=== PATIENT | female | born 1990 | race Caucasian/White ===

== ENCOUNTER 2021-09-08 06:30 | Inpatient (IN) ==
[2021-09-08] MEDS ORDERED: PITOCIN ONE (06:41)
[2021-09-08] MEDS ORDERED: BETADINE SOLN ONE (06:41)
[2021-09-08] MEDS ORDERED: D5 1/2 NS 1,000 ML 1,000 ML IV ONE (06:41)
[2021-09-08] MEDS ORDERED: AMPICILLIN VIAL 2 GRAM ONE (06:42)
[2021-09-08] MEDS ORDERED: D5 1/2 NS 1,000 mL + PITOCIN 20 UNITS/L IV 20 UNITS/1,000 ML BAG IV ONE (06:42)
[2021-09-08] MEDS ORDERED: D5 LR + PITOCIN 10 UNITS/L 10 UNITS/1,000 ML BAG IV ONE (06:42)
[2021-09-08] MEDS ORDERED: NS 100 ML IV 100 ML ONE ×2 (06:43→10:58)
--- NOTE | 2021-09-08 07:25 | DR.OB ---
OB Quick Note - Assessment/Plan Assessment/Plan: L&D 09/08/21 at 7:15am S-No complaint. O-Afebrile,VSS [id number] with good LTV, +accel, no decel. CTX=mild uterine irritability CVX=2cm/50%/-1/VTX AROM with clear fluid. IUPC and FSE placed. A-IUP at 38 1/7 weeks for induction CHTN +GBS anxiety P-Begin pitocin induction IV ABX in labor for +GBS F/U preeclamptic labs Anticipate
[2021-09-08] MEDS ORDERED: PITOCIN IVP ONE (07:32)
[2021-09-08] MEDS ORDERED: D5 1/2 NS 1,000 ML 1,000 ML IV SCH (07:32)
[2021-09-08] MEDS ORDERED: AMPICILLIN VIAL 2 GRAM 2 G in NS 100 ML IV + SPIKE MINIBAG* 100 ML IV SCH (07:32)
[2021-09-08] MEDS ORDERED: PHENERGAN INJ 25 MG IM PRN ×2 (07:32→14:19)
[2021-09-08] MEDS ORDERED: REGLAN INJ 10 MG VIAL IVP PRN (07:32)
[2021-09-08] MEDS ORDERED: MORPHINE SULFATE INJ 2 MG INJ IVP PRN (07:32)
[2021-09-08] MEDS ORDERED: NUBAIN INJ 200 MG VIAL MULTIDOSE IVP PRN (07:32)
[2021-09-08] MEDS ORDERED: D5 LR + PITOCIN 10 UNITS/L 10 UNITS/1,000 ML BAG IV PRN (07:32)
[2021-09-08 08:05] LABS: BASOPHILS % (AUTO) 0.3 % (0.2-1.0); EOSINOPHILS % (AUTO) 0.6 % (0.9-2.9); HEMATOCRIT 32.2 % (36.0-47.0); HEMOGLOBIN 10.8 g/dL (12.0-16.0); LYMPHOCYTES # (AUTO) 2.1 X10^3/uL (1.3-2.9); LYMPHOCYTES % (AUTO) 25.9 % (21.0-51.0); MEAN CORPUSCULAR HEMOGLOBIN 27.4 pg (27.0-34.0); MEAN CORPUSCULAR HGB CONC 33.5 g/dL (33.0-35.0); MEAN CORPUSCULAR VOLUME 81.7 fL (80.0-100.0); MEAN PLATELET VOLUME 9.7 fL (7.4-11.0); MONOCYTES # (AUTO) 0.5 x10^3/uL (0.3-0.8); MONOCYTES % (AUTO) 6.5 % (0.0-13.0); NEUTROPHILS # (AUTO) 5.4 x10^3/uL (2.2-4.8); NEUTROPHILS % (AUTO) 66.7 % (42.0-75.0); RED BLOOD COUNT 3.94 X10^6/uL (3.5-5.4); RED CELL DISTRIBUTION WIDTH 12.8 % (11.6-16.5); WHITE BLOOD COUNT 8.1 X10^3/uL (3.6-10.0)
[2021-09-08 08:06] LABS: BILIRUBIN,URINE NEGATIVE (NEGATIVE); BLOOD/HEMOGLOBIN,URINE 4+ (NEGATIVE); GLUCOSE, URINE NEGATIVE (NEGATIVE); KETONES,URINE 3+ (NEGATIVE); LEUKOCYTE ESTERASE ,URINE 1+ (NEGATIVE); NITRITES,URINE NEGATIVE (NEGATIVE); PH,URINE 6.5 (5.0 - 8.0); PROTEIN,URINE 2+ (NEGATIVE); UROBILINOGEN,URINE 1+ (NORMAL)
[2021-09-08 08:22] LABS: URIC ACID 3.4 mg/dL (2.6-6.0)
[2021-09-08 08:24] LABS: APPEARANCE,URINE CLOUDY (CLEAR); COLOR,URINE YELLOW (YELLOW)
[2021-09-08 08:25] LABS: BACTERIA,URINE TRACE /HPF (NEGATIVE); SQUAMOUS EPITHELIAL CELL,UR MANY /HPF (NEGATIVE)
[2021-09-08 08:29] LABS: BLOOD UREA NITROGEN 6 mg/dL (7-18); CARBON DIOXIDE 26.8 mmol/L (21-32); CHLORIDE 103 mmol/L (98-107); CREATININE 0.45 mg/dL (0.55-1.02); SODIUM 137 mmol/L (136-145); eGFR NON BLACK RACES > 60 (>60)
[2021-09-08] MEDS: VSL#3 PO SCH ×2 (08:29→14:50)
[2021-09-08] MEDS ORDERED: STADOL INJ ONE ×2 (10:55→13:31)
[2021-09-08] MEDS ORDERED: FENTANYL VIAL INJ 100 mcg ONE (10:56)
[2021-09-08] MEDS ORDERED: LR 1,000 ML IV 1,000 ML IV ONE (10:56)
[2021-09-08] MEDS ORDERED: NAROPIN 0.2% 400 MG/200 ML BAG 200 ML ONE (10:57)
[2021-09-08] MEDS: AMPICILLIN VIAL 1 GRAM 1 G in NS 50 ML IV + SPIKE MINIBAG* 50 ML IV SCH ×3 (11:00→14:50)
[2021-09-08] MEDS: AMPICILLIN VIAL 1 GRAM ONE ×2 (11:00→11:17)
[2021-09-08] MEDS: STADOL INJ IVP PRN ×2 (11:00→13:32)
--- NOTE | 2021-09-08 12:02 | DR.OB ---
OB Quick Note - Assessment/Plan Assessment/Plan: L&D 09/08/21 at 11:55am Pitocin=18mu/min. Ampicillin S-No complaint except CTX pain. O-Afebrile,VSS [id number] with good LTV, +accel, no decel. CTX=q 1 1/2 to 3 min., about 45-65mmHg CVX=4cm/50%/0 A-IUP at 38 1/7 weeks for induction CHTN +GBS anxiety P-Cont. pitocin induction and IV ABX in labor Anticipate
[2021-09-08] MEDS ORDERED: XYLOCAINE 1 % (PLAIN) ONE (12:44)
[2021-09-08] MEDS ORDERED: MOTRIN TAB 800 MG PO PRN (14:19)
[2021-09-08] MEDS ORDERED: D5 1/2 NS 1,000 ML 1,000 ML with PITOCIN 20 UNITS IV SCH ×2 (15:00)
[2021-09-08] MEDS ORDERED: PERCOCET TAB 5/325 MG PO PRN (15:09)
[2021-09-08] MEDS ORDERED: DERMOPLAST PAIN RELIEF SPRAY TOP PRN (15:09)
[2021-09-08] MEDS ORDERED: FLEXERIL TAB 10 MG PO PRN (15:09)
[2021-09-08] MEDS ORDERED: MILK OF MAGNESIA PO PRN (15:09)
[2021-09-08] MEDS ORDERED: AMBIEN PO PRN (15:09)
[2021-09-08] MEDS ORDERED: ADACEL or BOOSTRIX TDaP VACCINE IM ONE (15:09)
--- NOTE | 2021-09-08 16:25 | DR.OB ---
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 Head delivered over intact perineum. Nose and mouth bulb suctioned. No nuchal cord. Body delivered over intact perineum. Cord clamped x 2 and cut. handed to attendant. Placent delivered spontaneously / intact / 3 vessel cord. No CVX / vaginal / perineal tears noted. Viable male , VTX/OA, wt=7'2" and 8/9, stable to NBN. Mother stable to RR. [id number].
[2021-09-09 04:49] LABS: HEMATOCRIT 29.2 % (36.0-47.0); HEMOGLOBIN 9.6 g/dL (12.0-16.0)
[2021-09-09] MEDS: VSL#3 PO SCH (08:11)
[2021-09-09] MEDS ORDERED: TOPROL XL PO SCH (09:00)
[2021-09-09] MEDS ORDERED: ZOLOFT PO SCH (09:00)
[2021-09-09] MEDS ORDERED: PRENATAL PLUS PO SCH (09:00)
[2021-09-09 17:01] VITALS: BP 131/66
== END 2021-09-09 16:45 | disposition home or self-care (01) | DRG 806 ==
LOC: LD 06:32 → MED/SURG 15:27
PROVIDERS: ADMIT Specialist; ATTEND Specialist
DX: O99.343 Other mental disorders complicating pregnancy, third trimester; Z3A.38 38 weeks gestation of pregnancy; O10.013 Pre-existing essential hypertension complicating pregnancy, third trimester; Z20.822 Contact with and (suspected) exposure to COVID-19; Z37.0 Single live birth; O98.82 Other maternal infectious and parasitic diseases complicating childbirth; B95.1 Streptococcus, group B, as the cause of diseases classified elsewhere